=== PATIENT | male | born 1975 | race African-American/Black ===

== ENCOUNTER 2023-09-08 04:35 | Day surgery (SDC) | payer BC ==
[2023-09-02 14:11] VITALS: BMI 32.5
[2023-09-08 11:41] VITALS: BP 128/87; PULSE 54; RESP 16; TEMP 98
== END 2023-09-08 11:36 | disposition home or self-care (01) ==
LOC: JASU-ENDO 04:35
PROVIDERS: ATTEND Internal Medicine Gastroenterology
PROC: 0DJD8ZZ Inspection of Lower Intestinal Tract, Via Natural or Artificial Opening Endoscopic (ICD-10-PCS; principal; 2023-09-08 09:30)
DX: Z12.11 Encounter for screening for malignant neoplasm of colon (principal); K64.8 Other hemorrhoids; E11.9 Type 2 diabetes mellitus without complications